=== PATIENT | female | born 1965 | race Caucasian/White ===

== ENCOUNTER 2017-06-10 09:40 | Emergency (ER) | payer SELFPAY ==
[2017-06-10] MEDS ORDERED: predniSONE 20 MG TAB ONE (11:43)
== END 2017-06-10 12:29 | disposition home or self-care (01) ==
LOC: ERS 09:40
DX: J40 Bronchitis, not specified as acute or chronic (principal); E11.9 Type 2 diabetes mellitus without complications; E03.9 Hypothyroidism, unspecified; E78.5 Hyperlipidemia, unspecified; F31.9 Bipolar disorder, unspecified; F20.9 Schizophrenia, unspecified; Z87.891 Personal history of nicotine dependence; Z79.899 Other long term (current) drug therapy
CPT/HCPCS: 99283; J7506

== ENCOUNTER 2017-07-25 13:42 | Emergency (ER) | payer SELFPAY ==
[2017-07-25] MEDS ORDERED: Acetaminophen 500 MG TAB ONE (15:06)
--- NOTE | 2017-07-25 15:20 | RAD ---
CHEST PA AND LATERAL: Date: 07/25/17 HISTORY: 51-year-old female with history of cough. FINDINGS: Heart size is normal. The lungs are clear. IMPRESSION: No acute intrathoracic disease. No evidence for pneumonia. POS: [id number]
== END 2017-07-25 15:36 | disposition home or self-care (01) ==
LOC: ERS 13:42
DX: J20.9 Acute bronchitis, unspecified (principal); E11.9 Type 2 diabetes mellitus without complications; E03.9 Hypothyroidism, unspecified; E78.5 Hyperlipidemia, unspecified; J45.909 Unspecified asthma, uncomplicated; F31.9 Bipolar disorder, unspecified; F20.9 Schizophrenia, unspecified
CPT/HCPCS: 71046; 87804; 99406